=== PATIENT | male | born 1980 | race Hispanic/Latino ===

== ENCOUNTER 2017-10-27 22:20 | Emergency (ER) | payer OTHER ==
[~2017-10-27] VITALS: Ht 154.9 cm; Wt 80.7 kg
--- OUTSIDE RECORDS SUMMARY | 2017-10-27 22:23 | XMS REPORT | Clinical Summary ---
Author Author [facility] Address Unknown Phone Unavailable Care Team Providers Care Blood Bank Supervisor Name Role Phone PCP Unavailable Allergies Active Allergy Reactions Severity Noted Date Comments Unable To Assess Other (See Comments) 02/26/2014 The Pt states he is allergic to an medication but doesn't know name or what for Sulfamethoxazole-Trimetho Rash Low 02/01/2015 prim Current Medications Prescription Sig. Disp. Refills Start End Date Status Date calcium carbonate-vitamin Take 1 tablet by mouth 3 Active D2 500 mg(1,250mg) -200 (three) times daily. unit tablet multivitamin capsule Take 1 capsule by mouth Active daily. lisinopril Take 5 mg by mouth daily. Active (PRINIVIL,ZESTRIL) 5 MG tablet lancets (GLUCOCOM Use as directed 100 each 0 02/28/20 Active LANCETS) 28 gauge Misc 14 lancets & blood glucose Use as directed 100 each 0 02/28/20 Active strips Cmpk 14 insulin detemir (LEVEMIR) Inject 35 Units Active 100 unit/mL injection subcutaneously 2 (two) times daily. insulin lispro (HUMALOG) Inject subcutaneously 3 Active 100 unit/mL injection (three) times daily before meals. magnesium oxide (MAG-OX) Take 2 tablets (800 mg 180 tablet 11 Active 400 mg tablet total) by mouth 3 (three) 16 times daily. predniSONE (DELTASONE) 5 Take 1 tablet (5 mg 45 tablet 6 12/23/19 Active MG tabletIndications: total) by mouth daily. 17 Immunosuppression (HCC), Status post liver transplantation (HCC), Glycogen storage disease, unspecified type (HCC), Elevated liver enzymes mycophenolate (CELLCEPT) Take 4 capsules (1,000 mg 240 capsule 6 09/1109/12/19 Active 250 mg total) by mouth 2 (two) 18 19 capsuleIndications: times daily. Immunosuppression (HCC), Status post liver transplantation (HCC), Glycogen storage disease, unspecified type (HCC), Elevated liver enzymes tacrolimus (PROGRAF) 1 MG Take 1 capsule (1 mg 30 capsule 11 10/23/19 10/24/19 Active capsule total) by mouth once in morning. tacrolimus (PROGRAF) 0.5 Take 1 capsule (0.5 mg 30 capsule Active MG capsule total) by mouth nightly. 18 mycophenolate (CELLCEPT) Take 4 capsules (1,000 mg 0 11/06/19 Discontin 250 mg capsule total) by mouth 2 (two) 16 17 ued times daily. predniSONE (DELTASONE) 5 Take 1 tablet (5 mg 45 tablet 6 03/03/20 Discontin MG tabletIndications: total) by mouth daily. 16 17 ued Immunosuppression (HCC), Status post liver transplantation (HCC), Glycogen storage disease, unspecified type (HCC), Elevated liver enzymes tacrolimus (PROGRAF) 1 MG Take 1 capsule (1 mg 60 capsule 5 10/21/19 09/10/19 Discontin capsuleIndications: total) by mouth 2 (two) 17 18 ued Status post liver times daily. transplantation (HCC), Glycogen storage disease, unspecified type (HCC), Status post liver transplantation (HCC), Immunosuppression (HCC), Non morbid obesity due to excess calories, Screening for malignant neoplasm, Poorly controlled diabetes mellitus (HCC) mycophenolate (CELLCEPT) Take 4 capsules (1,000 mg 240 capsule 6 12/2209/12/19 Discontin 250 mg total) by mouth 2 (two) 17 18 ued capsuleIndications: times daily. Immunosuppression (HCC), Status post liver transplantation (HCC), Glycogen storage disease, unspecified type (HCC), Elevated liver enzymes tacrolimus (PROGRAF) 1 MG Take 1 capsule (1 mg 60 capsule 5 09/10/19 09/16/19 Discontin capsuleIndications: total) by mouth 2 (two) 18 18 ued Status post liver times daily. transplantation (HCC), Glycogen storage disease, unspecified type (HCC), Status post liver transplantation (HCC), Immunosuppression (HCC), Non morbid obesity due to excess calories, Screening for malignant neoplasm, Poorly controlled diabetes mellitus (HCC) tacrolimus (PROGRAF) 0.5 Take 1 capsule (0.5 mg 60 capsule 6 09/16/19 10/23/19 Discontin MG capsule total) by mouth daily 18 18 ued Take 1 Capsule (0.5 mg) every morning. tacrolimus (PROGRAF) 1 MG Take 1 mg capsule in the 60 capsule 5 10/23/19 Discontin capsuleIndications: PM. 18 18 ued Status post liver transplantation (HCC), Glycogen storage disease, unspecified type (HCC), Status post liver transplantation (HCC), Immunosuppression (HCC), Non morbid obesity due to excess calories, Screening for malignant neoplasm, Poorly controlled diabetes mellitus (HCC) Active Problems Problem Noted Date Obesity 02/02/2015 Poorly controlled diabetes mellitus (HCC) 02/01/2015 Abscess of rectum 02/01/2015 H/O liver transplant (HCC) 02/01/2015 Elevated liver enzymes 10/05/2014 Healthcare maintenance 10/05/2014 Last Assessment & Plan: Needs regular follow-up with PCP and supervisor rose grading. Diabetes mellitus (HCC) 02/26/2014 Last Assessment & Plan: Continue insulin as prescribed by cashier ticket selling/PCP Immunosuppression (HCC) 09/29/2013 Last Assessment & Plan: Will follow labs and dose immunosuppression accordingly. Status post liver transplantation (HCC) 09/29/2013 Overview: ICD9 DX Writer Editor L ast Assessment & Plan: LFTs elevated on last check. Will recheck tomorrow, and if they remain elevated, will need further work-up. Overweight 09/29/2013 Last Assessment & Plan: Encouraged patient to exercise 15 minutes per day Glycogen storage disease (HCC) 09/29/2013 Last Assessment & Plan: S/p liver transplant. currently tolerating regular diet without any problem Encounters Date Type Specialty Care Team Description 10/22/2017 Follow-Up Transplant Hepatology Rae Harper MD Status post liver transplantation (HCC) (Primary Dx);Immunosuppression (HCC);Obesity (BMI 30-39.9);Screening for malignant neoplasm;Poorly controlled diabetes mellitus (HCC) 10/22/2017 Orders Only Transplant Hepatology Rae Harper MD Status post liver transplantation (HCC);Immunosuppression (HCC);Encounter for long-term (current) use of high-risk medication;Encounter for therapeutic drug monitoring;Nonspecific findings on examination of blood;Disorder of magnesium metabolism;Complication of transplanted liver, unspecified complication (HCC) 10/22/2017 Telephone Transplant Hepatology Natalie Pandya Labs Only (SPK W SP. RE: LAB/RX RESULTS; NO MED CHANGES; REPEAT BLD WK X1 MTH; 11/23/2017; [facility]; GGT) 10/22/2017 Documentation Transplant Hepatology Natalie Pandya 10/22/2017 Abstract Transplant Hepatology Rae Harper MD 09/30/2017 Documentation Transplant Hepatology Kristyn Bartholomew 09/16/2017 Abstract Transplant Hepatology Erica Guevara RN 09/16/2017 Orders Only Transplant Hepatology Erica Guevara, DALLIN Status post liver transplantation (HCC) (Primary Dx);Immunosuppression (HCC);Encounter for long-term (current) use of high-risk medication;Encounter for therapeutic drug monitoring;Nonspecific findings on examination of blood;Disorder of magnesium metabolism;Complication of transplanted liver, unspecified complication (HCC) 09/15/2017 Telephone Transplant Hepatology Carmelita Cesar RN Medication Dose Change 09/15/2017 Orders Only Transplant Hepatology Carmelita Cesar RN 09/11/2017 Orders Only Transplant Hepatology Carmelita Cesar RN Immunosuppression (HCC);Status post liver transplantation (HCC);Glycogen storage disease, unspecified type (HCC);Elevated liver enzymes 09/10/2017 Orders Only Transplant Hepatology Davin Bah MD 09/09/2017 Orders Only Transplant Hepatology Carmelita Cesar RN Status post liver transplantation (HCC);Glycogen storage disease, unspecified type (HCC);Status post liver transplantation;Immunosup pression;Non morbid obesity due to excess calories;Screening for malignant neoplasm;Poorly controlled diabetes mellitus 08/10/2017 Refill Transplant Hepatology Davin Bah MD Immunosuppression (HCC);Status post liver transplantation (HCC);Glycogen storage disease, unspecified type (HCC);Elevated liver enzymes 05/19/2017 Telephone Transplant Hepatology Kristyn Bartholomew Labs Only ( No change in current medications, repeat labs in 4 mo. 09/09/17@ [facility]. ) 05/11/2017 Orders Only Transplant Hepatology Davin Bah MD 01/16/2017 Telephone Transplant Hepatology Rakel Alvarado Labs Only ( Spoke w/pt re; labs/meds. No changes in his medication, repeat labs 05/12/17 at [facility]. ) 01/09/2017 Orders Only Transplant Hepatology Davin Bah MD 12/22/2016 Orders Only Transplant Hepatology Carmelita Cesar RN Immunosuppression (HCC);Status post liver transplantation (HCC);Glycogen storage disease, unspecified type (HCC);Elevated liver enzymes after 10/26/2016 Family History Medical History Relation Name Comments Diabetes Father Heart disease Father Hypertension Mother Liver disease Sister Relation Name Status Comments Father Mother Sister Alive Social History Tobacco Use Types Packs/Day Years Used Date Never Smoker Smokeless Tobacco: Never Used Alcohol Use Drinks/Week oz/Week Comments No Sex Assigned at Date Recorded Not on file Last Filed Vital Signs Vital Sign Reading Time Taken Blood Pressure 132/87 10/22/2017 9:38 AM CDT Pulse 93 10/22/2017 9:38 AM CDT Temperature 36.8 C (98.2 F) 10/22/2017 9:38 AM CDT Respiratory Rate 16 10/22/2017 9:38 AM CDT Oxygen Saturation 98% 10/22/2017 9:38 AM CDT Inhaled Oxygen - - Concentration Weight 80.9 kg (178 lb 4.8 oz) 10/22/2017 9:38 AM CDT Height 154.9 cm (5' 1") 10/22/2017 9:38 AM CDT Body Mass Index 33.69 10/22/2017 9:38 AM CDT Plan of Treatment Health Maintenance Due Date Last Done Comments INFLUENZA VACCINE 03/22/2018 Results * CBC with platelet count + automated diff (10/22/2017 9:21 AM) Component Value Ref Range WBC 14.3 (H) 3.5 - 10.5 K/ L RBC 3.93 (L) 4.63 - 6.08 M/ L Hemoglobin 12.0 (L) 13.7 - 17.5 GM/DL Hematocrit 37.7 (L) 40.1 - 51.0 % MCV 95.9 (H) 79.0 - 92.2 fL MCH 30.5 25.7 - 32.2 pg MCHC 31.8 (L) 32.3 - 36.5 GM/DL RDW 12.3 11.6 - 14.4 % Platelets 287 150 - 450 K/CU MM MPV 10.4 9.4 - 12.4 fL nRBC 0 0 - 0 /100 WBC % Neutros 64 % % Lymphs 28 % % Monos 6 % % Eos 1 % % Baso 0 % # Neutros 9.09 (H) 1.78 - 5.38 K/ L # Lymphs 3.99 (H) 1.32 - 3.57 K/ L # Monos 0.89 (H) 0.30 - 0.82 K/ L # Eos 0.20 0.04 - 0.54 K/ L # Baso 0.05 0.01 - 0.08 K/ L Immature 1 0 - 1 % Granulocytes-Relative Specimen Performing Laboratory Blood [address] [address] * Tacrolimus level (10/22/2017 9:21 AM) Only the most recent of 4 results within the time period is included. Component Value Ref Range Tacrolimus Lvl 6.9 (L) 10.0 - 20.0 ng/mL Specimen [place] [address] Narrative Annual lab orders * CBC with platelet count + automated diff (10/22/2017 9:21 AM) Only the most recent of 4 results within the time period is included. Specimen Performing Laboratory Blood [facility] ([place]) Narrative The following orders were created for panel order CBC with platelet count + automated diff. Procedure Abnormality Status --------- - ------ CBC with platelet count ...[[id number]]AbnormalFinal result Please view results for these tests on the individual orders. * Phosphorus (10/22/2017 9:21 AM) Component Value Ref Range Phosphorus 4.2 2.3 - 4.7 mg/dL Specimen Performing Laboratory Blood [address] [address] Narrative Annual lab orders Annual lab orders Annual lab orders Annual lab orders * Magnesium (10/22/2017 9:21 AM) Only the most recent of 2 results within the time period is included. Component Value Ref Range Magnesium 1.6 1.6 - 2.6 mg/dL Specimen Performing Laboratory Blood [address] [address] Narrative Annual lab orders Annual lab orders Annual lab orders Annual lab orders * Bilirubin, direct (10/22/2017 9:21 AM) Component Value Ref Range Bilirubin, Direct 0.2 0.1 - 0.5 mg/dL Specimen Performing Laboratory Blood [address] [address] Narrative Annual lab orders Annual lab orders Annual lab orders Annual lab orders * Comprehensive metabolic panel (10/22/2017 9:21 AM) Only the most recent of 3 results within the time period is included. Component Value Ref Range Protein, Total 7.8 6.0 - 8.3 gm/dL Albumin 4.2 3.5 - 5.0 g/dL Alkaline Phosphatase 118 40 - 150 U/L Total Bilirubin 0.3 0.2 - 1.2 mg/dL Sodium 137 136 - 145 meq/L Potassium 3.8 3.5 - 5.1 meq/L Chloride 103 98 - 107 meq/L CO2 22 22 - 29 meq/L BUN 37 (H) 7 - 21 mg/dL Creatinine 1.28 (H) 0.57 - 1.25 mg/dL Glucose 48 (L) 70 - 105 mg/dL Calcium 9.6 8.4 - 10.2 mg/dL AST 12 5 - 34 U/L ALT 14 6 - 55 U/L EGFR 64Comment: ESTIMATED GFR IS NOT ACCURATE mL/min/1.73 sq m CREATININE CLEARANCE IN PREDICTING GLOMERULAR FILTRATION RATE. ESTIMATED GFR IS NOT APPLICABLE FOR DIALYSIS PATIENTS. Specimen Performing Laboratory Blood [address] [address] Narrative Annual lab orders Annual lab orders Annual lab orders Annual lab orders * Hepatic function panel (09/10/2017 9:39 AM) Component Value Ref Range Protein, Total, Serum 6.9 6.0 - 8.5 g/dL Albumin, Serum 4.3 3.5 - 5.5 g/dL Bilirubin, Total 0.2 0.0 - 1.2 mg/dL Bilirubin, Direct 0.08 0.00 - 0.40 mg/dL Alkaline Phosphatase, S 118 (H) 39 - 117 IU/L AST (SGOT) 15 0 - 40 IU/L ALT (SGPT) 16 0 - 44 IU/L Specimen Performing Laboratory [facility] Narrative Performed at:[address] [place], [place] [id number] Demographer: Robbie Horton MD, Phone:[phone] * Basic Metabolic Panel (09/10/2017 9:39 AM) Component Value Ref Range Glucose, Serum 125 (H) 65 - 99 mg/dL BUN 33 (H) 6 - 20 mg/dL Creatinine, Serum 1.17 0.76 - 1.27 mg/dL eGFR If NonAfricn Am 80 >59 mL/min/1.73 eGFR If Africn Am 92 >59 mL/min/1.73 BUN/Creatinine Ratio 28 (H) 9 - 20 Sodium, Serum 140 134 - 144 mmol/L Potassium, Serum 4.5 3.5 - 5.2 mmol/L Chloride, Serum 98 96 - 106 mmol/L Carbon Dioxide, Total 22 18 - 29 mmol/L Calcium, Serum 9.4 8.7 - 10.2 mg/dL Specimen Performing Laboratory [facility] Narrative Performed at:[id number] Demographer: Robbie Horton MD, Phone:[phone] * Bilirubin, total and direct (05/11/2017 10:57 AM) Only the most recent of 2 results within the time period is included. Component Value Ref Range Bilirubin, Direct 0.05 0.00 - 0.40 mg/dL Bilirubin, Indirect 0.15 0.10 - 0.80 mg/dL Specimen Performing Laboratory [facility] Narrative Performed at:[id number] Demographer: Robbie Horton MD, Phone:[phone] after 10/26/2016
--- OUTSIDE RECORDS SUMMARY | 2017-10-27 22:23 | XMS REPORT ---
Author Author [facility] Address Unknown Phone Unavailable Care Team Providers Care Academic Tutor Name Role Phone DAMON HERNANDEZ Unavailable Unavailable Problems This patient has no known problems. Allergies, Adverse Reactions, Alerts This patient has no known allergies or adverse reactions. Medications This patient has no known medications. Results Test Description Test Time Test Comments Text Results Atomic Results Result Comments TACROLIMUS LEVEL 2017-10-22 11:28:00 TACROLIMUS BLOOD (BEAKER) (test mnln=606) 6.9 ng/mL 10.0-20.0 Annual lab [id number] 11:05:00* Test Item Value Reference Range Comments PHOSPHORUS (BEAKER) (test upvl=715) 4.2 mg/dL 2.3-4.7 Annual lab ordersAnnual lab ordersAnnual lab ordersAnnual lab [id number] 11:05:00* Test Item Value Reference Range Comments MAGNESIUM (BEAKER) (test uuoa=956) 1.6 mg/dL 1.6-2.6 Annual lab ordersAnnual lab ordersAnnual lab ordersAnnual lab ordersCOMPREHENSIVE METABOLIC [id number] 11:05:00* Test Item Value Reference Range Comments TOTAL PROTEIN (BEAKER) (test pcwp=904) 7.8 gm/dL 6.0-8.3 ALBUMIN (BEAKER) (test hxpj=4980) 4.2 g/dL 3.5-5.0 ALKALINE PHOSPHATASE (BEAKER) (test wjal=626) 118 U/L 40-150 BILIRUBIN TOTAL (BEAKER) (test jxmd=000) 0.3 mg/dL 0.2-1.2 SODIUM (BEAKER) (test rnqq=607) 137 meq/L 136-145 POTASSIUM (BEAKER) (test gzxu=351) 3.8 meq/L 3.5-5.1 CHLORIDE (BEAKER) (test yehs=497) 103 meq/L 98-107 CO2 (BEAKER) (test trll=454) 22 meq/L 22-29 BLOOD UREA NITROGEN (BEAKER) (test lkkb=999) 37 mg/dL 7-21 CREATININE (BEAKER) (test hdml=113) 1.28 mg/dL 0.57-1.25 GLUCOSE RANDOM (BEAKER) (test kvun=662) 48 mg/dL 70-105 CALCIUM (BEAKER) (test ivai=733) 9.6 mg/dL 8.4-10.2 AST (SGOT) (BEAKER) (test ibqt=770) 12 U/L 5-34 ALT (SGPT) (BEAKER) (test etfx=239) 14 U/L 6-55 EGFR (BEAKER) (test wdrq=6090) 64 mL/min/1.73 sq m ESTIMATED GFR IS NOT ACCURATE CREATININE CLEARANCE IN PREDICTING GLOMERULAR FILTRATION RATE. ESTIMATED GFR IS NOT APPLICABLE FOR DIALYSIS PATIENTS. Annual lab ordersAnnual lab ordersAnnual lab ordersAnnual lab ordersBILIRUBIN, [id number] 11:05:00* Test Item Value Reference Range Comments BILIRUBIN DIRECT (BEAKER) (test yugh=448) 0.2 mg/dL 0.1-0.5 Annual lab ordersAnnual lab ordersAnnual lab ordersAnnual lab ordersCBC W/PLT COUNT & AUTO [id number] 10:30:00* Test Item Value Reference Range Comments WHITE BLOOD CELL COUNT (BEAKER) (test poqf=219) 14.3 K/ L 3.5-10.5 RED BLOOD CELL COUNT (BEAKER) (test dzxh=980) 3.93 M/ L 4.63-6.08 HEMOGLOBIN (BEAKER) (test yfcq=788) 12.0 GM/DL 13.7-17.5 HEMATOCRIT (BEAKER) (test hhcc=229) 37.7 % 40.1-51.0 MEAN CORPUSCULAR VOLUME (BEAKER) (test htrq=292) 95.9 fL 79.0-92.2 MEAN CORPUSCULAR HEMOGLOBIN (BEAKER) (test aaxj=819) 30.5 pg 25.7-32.2 MEAN CORPUSCULAR HEMOGLOBIN CONC (BEAKER) (test chyl=876) 31.8 GM/DL 32.3- 36.5 RED CELL DISTRIBUTION WIDTH (BEAKER) (test bngk=629) 12.3 % 11.6-14.4 PLATELET COUNT (BEAKER) (test vlun=227) 287 K/CU MM 150-450 MEAN PLATELET VOLUME (BEAKER) (test dqrp=934) 10.4 fL 9.4-12.4 NUCLEATED RED BLOOD CELLS (BEAKER) (test dyrq=275) 0 /100 WBC 0-0 NEUTROPHILS RELATIVE PERCENT (BEAKER) (test hush=931) 64 % LYMPHOCYTES RELATIVE PERCENT (BEAKER) (test yqja=221) 28 % MONOCYTES RELATIVE PERCENT (BEAKER) (test unhh=266) 6 % EOSINOPHILS RELATIVE PERCENT (BEAKER) (test oxoi=953) 1 % BASOPHILS RELATIVE PERCENT (BEAKER) (test zqfs=823) 0 % NEUTROPHILS ABSOLUTE COUNT (BEAKER) (test nfkk=837) 9.09 K/ L 1.78-5.38 LYMPHOCYTES ABSOLUTE COUNT (BEAKER) (test tlcl=335) 3.99 K/ L 1.32-3.57 MONOCYTES ABSOLUTE COUNT (BEAKER) (test gdza=537) 0.89 K/ L 0.30-0.82 EOSINOPHILS ABSOLUTE COUNT (BEAKER) (test chhz=374) 0.20 K/ L 0.04-0.54 BASOPHILS ABSOLUTE COUNT (BEAKER) (test klwk=200) 0.05 K/ L 0.01-0.08 IMMATURE GRANULOCYTES-RELATIVE PERCENT (BEAKER) (test qhks=6481) 1 % 0-1 TACROLIMUS [id number] 13:41:00* Test Item Value Reference Range Comments TACROLIMUS BLOOD (BEAKER) (test ihkp=235) 9.1 ng/mL 10.0-20.0 ALPHA FETOPROTEIN (AFP), TUMOR [id number] 11:34:00* Test Item Value Reference Range Comments ALPHA-FETOPROTEIN (BEAKER) (test vxkj=1562) 2.8 ng/mL <10.0 Effective 05/09/2014: Reference Range ChangeNew: <10.0 Previous: 0.0- [id number] 11:29:00* Test Item Value Reference Range Comments PHOSPHORUS (BEAKER) (test nwek=820) 3.7 mg/dL 2.3-4.7 [id number] 11:29:00* Test Item Value Reference Range Comments MAGNESIUM (BEAKER) (test vizq=912) 1.9 mg/dL 1.6-2.6 COMPREHENSIVE METABOLIC [id number] 11:29:00* Test Item Value Reference Range Comments TOTAL PROTEIN (BEAKER) (test hjxm=478) 7.7 gm/dL 6.0-8.3 ALBUMIN (BEAKER) (test sscz=9142) 4.1 g/dL 3.5-5.0 ALKALINE PHOSPHATASE (BEAKER) (test wksk=295) 130 U/L 40-150 BILIRUBIN TOTAL (BEAKER) (test belo=469) 0.3 mg/dL 0.2-1.2 SODIUM (BEAKER) (test spex=426) 140 meq/L 136-145 POTASSIUM (BEAKER) (test djdu=750) 3.8 meq/L 3.5-5.1 CHLORIDE (BEAKER) (test shpa=272) 106 meq/L 98-107 CO2 (BEAKER) (test glgs=532) 24 meq/L 22-29 BLOOD UREA NITROGEN (BEAKER) (test egbl=667) 31 mg/dL 7-21 CREATININE (BEAKER) (test bjks=947) 1.27 mg/dL 0.57-1.25 GLUCOSE RANDOM (BEAKER) (test sdjw=873) 97 mg/dL 70-105 CALCIUM (BEAKER) (test zwrh=152) 9.4 mg/dL 8.4-10.2 AST (SGOT) (BEAKER) (test oznv=115) 11 U/L 5-34 ALT (SGPT) (BEAKER) (test ebvn=243) 13 U/L 6-55 EGFR (BEAKER) (test qijm=6516) 65 mL/min/1.73 sq m ESTIMATED GFR IS NOT ACCURATE CREATININE CLEARANCE IN PREDICTING GLOMERULAR FILTRATION RATE. ESTIMATED GFR IS NOT APPLICABLE FOR DIALYSIS PATIENTS. LIPID [id number] 11:29:00* Test Item Value Reference Range Comments TRIGLYCERIDES (BEAKER) (test susd=792) 107 mg/dL CHOLESTEROL (BEAKER) (test jzki=999) 192 mg/dL HDL CHOLESTEROL (BEAKER) (test wtzk=993) 60 mg/dL LDL CHOLESTEROL CALCULATED (BEAKER) (test tzxd=174) 111 mg/dL Triglyceride Reference Range: Low Risk <150 Borderline 150-199 High Risk 200-499 Very High Risk >=500Cholesterol Reference Range: Low Risk <200 Borderline 200-239 High Risk >240HDL Cholesterol Reference Range: Low Risk >=60 High Risk <40LDL Cholesterol Reference Range: Optimal <100 Near Optimal 100-129 Borderline 130-159 High 160-189 Very High >=190 BILIRUBIN, [id number] 11:29:00* Test Item Value Reference Range Comments BILIRUBIN DIRECT (BEAKER) (test vxjc=234) 0.1 mg/dL 0.1-0.5 CBC W/PLT COUNT & AUTO [id number] 10:40:00* Test Item Value Reference Range Comments WHITE BLOOD CELL COUNT (BEAKER) (test ytof=369) 15.4 K/ L 4.0-10.0 RED BLOOD CELL COUNT (BEAKER) (test tcfg=795) 3.82 M/ L 4.20-5.80 HEMOGLOBIN (BEAKER) (test haqe=685) 12.3 GM/DL 13.0-16.8 HEMATOCRIT (BEAKER) (test impv=089) 37.3 % 40.0-50.0 MEAN CORPUSCULAR VOLUME (BEAKER) (test krgs=046) 97.8 fL 82.0-98.0 MEAN CORPUSCULAR HEMOGLOBIN (BEAKER) (test lknz=801) 32.3 pg 27.0-33.0 MEAN CORPUSCULAR HEMOGLOBIN CONC (BEAKER) (test bzes=889) 33.1 GM/DL 32.0- 36.0 RED CELL DISTRIBUTION WIDTH (BEAKER) (test rbdz=857) 11.9 % 10.3-14.2 PLATELET COUNT (BEAKER) (test ntvx=203) 280 K/CU MM 150-430 MEAN PLATELET VOLUME (BEAKER) (test zgwa=384) 7.2 fL 6.5-10.5 NUCLEATED RED BLOOD CELLS (BEAKER) (test uctm=765) 0 /100 WBC 0-0 NEUTROPHILS RELATIVE PERCENT (BEAKER) (test qthj=722) 73 % LYMPHOCYTES RELATIVE PERCENT (BEAKER) (test dzsk=619) 20 % MONOCYTES RELATIVE PERCENT (BEAKER) (test uscq=266) 6 % EOSINOPHILS RELATIVE PERCENT (BEAKER) (test ejvp=941) 1 % BASOPHILS RELATIVE PERCENT (BEAKER) (test bxkf=200) 0 % NEUTROPHILS ABSOLUTE COUNT (BEAKER) (test fkwa=024) 11.20 K/ L 1.80-8.00 LYMPHOCYTES ABSOLUTE COUNT (BEAKER) (test cxsy=695) 2.99 K/ L 1.48-4.50 MONOCYTES ABSOLUTE COUNT (BEAKER) (test ttnx=356) 1.00 K/ L 0.00-1.30 EOSINOPHILS ABSOLUTE COUNT (BEAKER) (test sljl=916) 0.18 K/ L 0.00-0.50 BASOPHILS ABSOLUTE COUNT (BEAKER) (test cqvs=432) 0.05 K/ L 0.00-0.20 0.00
[2017-10-27] MEDS ORDERED: CEFTRIAXONE SOD 1 GM VIAL IM ONE (22:45)
[2017-10-27] MEDS ORDERED: HYDROCODONE/APAP 5MG-325MG TAB PO ONE (22:45)
== END 2017-10-27 23:00 | disposition home or self-care (01) ==
LOC: FSED 22:20
CPT/HCPCS: 99282; J0696

== ENCOUNTER 2018-07-03 00:07 | Emergency (ER) | payer OTHER ==
[~2018-07-03] VITALS: Ht 154.9 cm; Wt 81.6 kg
[2018-07-03] MEDS ORDERED: LIDOCAINE HCL 2% LOCAL INJ 5 ML SDV VIAL INJ STA (00:21)
[2018-07-03] MEDS ORDERED: CLINDAMYCIN HC150 MG PO (00:42)
[2018-07-03 01:07] VITALS: BP 128/80
== END 2018-07-03 01:00 | disposition home or self-care (01) ==
LOC: FSED 00:07
DX: L02.214 Cutaneous abscess of groin (principal); I10 Essential (primary) hypertension; E11.65 Type 2 diabetes mellitus with hyperglycemia; Z94.4 Liver transplant status
CPT/HCPCS: 99283

== ENCOUNTER 2019-08-30 23:42 | Emergency (ER) | payer OTHER ==
[~2019-08-30] VITALS: Ht 154.9 cm; Wt 81.6 kg
[~2019-08-30 23:42] MED LIST: CLINDAMYCIN HC150 MG PO
--- OUTSIDE RECORDS SUMMARY | 2019-08-30 23:45 | XMS REPORT | Summary of Care ---
Author Author [facility] Organization [facility] Address Unknown Phone Unavailable Care Team Providers Care Short Piece Handler Name Role Phone Nathaly Bain PCP Unavailable Reason for Visit * Reason Comments Disease Management Encounter Details Care Team Description Date Type Department Balaji Liu MD [address] [place] [address] Disease Management 03/15/2019 Office Visit [facility] Nephrology [address]; [address] [place] [address] Allergies Comments Active Allergy Reactions Severity Noted Date Bactrim 03/19/2009 Niacin GI 02/20/2006 documented as of this encounter (statuses as of 03/17/2019) Medications End Date Status Medication Sig Dispensed Refills Start Date Active tacrolimus (PROGRAF) 1 MG Take 1 mg by 0 capsule mouth daily. Active Calcium Carbonate-Vitamin Take 2 Tabs 0 D (CALCIUM-CARB 600 + D by mouth OR) daily. Active Alcohol Swabs (ALCOHOL Use as 200 Each 1 PREP) 70 % directed 5 4 PADSIndications: Diabetes times daily mellitus (HCCode) Active Glucose Blood Strips 1 Each four 400 Each 3 (ONETOUCH times daily. 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 Active predniSONE (DELTASONE) 5 Take 2 Tabs 60 Tab 11 MG tablet by mouth 8 daily. Active Blood Glucose Monitoring Check glucose 1 Kit 0 Suppl (ONETOUCH VERIO) 4-5x daily; 9 w/Device KIT Dx E09.9 Active amlodipine (NORVASC) 2.5 TAKE 1 TAB BY 90 Tab 0 MG tablet MOUTH DAILY. 9 Active GlucometerIndications: Check blood 1 Each 1 Steroid-induced diabetes sugars 4 9 (HCCode) times daily Active Lancets MISCIndications: 1 Each four 400 Each 3 Steroid-induced diabetes times daily. 9 (HCCode) Active Lancets Misc. Check blood 1 Each 1 KITIndications: sugars 4 9 Steroid-induced diabetes times daily (HCCode) Active Insulin Detemir (LEVEMIR INJECT 25 30 mL 2 FLEXTOUCH) 100 UNIT/ML UNITS INTO 9 SOPNIndications: Type 2 THE SKIN TWO diabetes mellitus without TIMES DAILY. complication (HCCode) Active ONETOUCH VERIO USE 400 Strip 0 DIRECTED 4 9 TIMES A DAY Active amlodipine (NORVASC) 5 MG TAKE 1 TABLET 90 Tab 0 tabletIndications: BY MOUTH 9 Essential hypertension DAILY. Active Glucose Blood Strips 1 Each four 360 Each 3 (GLUCOSE METER times daily. 9 TEST)Indications: Use one strip Steroid-induced diabetes as directed (HCCode) to check blood sugars 4 times daily, diagnosis: steroid induced diabetes, on insulin. Please dispense 90 days' eltehr=111 Active GlucometerIndications: Check blood 1 Each 1 Steroid-induced diabetes sugars 4 9 (HCCode) times daily Active Continuous Blood Gluc 1 Each daily. 1 Device 1 Partnership Development Manager (FREESTYLE TONIE 9 14 DAY READER) DEVIIndications: Steroid-induced diabetes (HCCode) Active Continuous Blood Gluc 1 Each every 7 Each 3 Sensor (FREESTYLE TONIE 14 days. 9 14 DAY SENSOR) MISCIndications: Steroid-induced diabetes (HCCode) Active Magnesium Oxide 400 MG Take 800 mg 270 Each 3 CAPS by mouth 3 9 times daily. Active Insulin Pen Needle (BD USE 500 Each 10 PEN NEEDLE SHARIF U/F) 32G DIRECTED TO 9 X 4 MM MISCIndications: INJECT 5 Type 2 diabetes mellitus TIMES DAILY; without complication Dx E11.65 ([facility]) Active lisinopril (PRINIVIL, Take 1 Tab by 90 Tab 3 ZESTRIL) 20 MG tablet mouth daily. 9 03/15/2019 Discontinued lisinopril (PRINIVIL, TAKE 1 TAB BY 90 Tab 3 ZESTRIL) 10 MG tablet MOUTH DAILY. 9 documented as of this encounter (statuses as of 03/17/2019) Active Problems Problem Noted Date CKD (chronic kidney disease) stage 3, GFR 30-59 ml/min ([facility]) 04/28/2017 Steroid-induced diabetes ([facility]) 03/05/2017 Steroid long-term use 10/26/2014 HTN (hypertension) 10/26/2014 Microalbuminuria 07/27/2014 Renal insufficiency 07/27/2014 Obesity 05/16/2014 Overview: Vitals 03/30/2006 03/19/2009 03/26/2009 04/30/2009 03/14/2014 WEIGHT 103 151 148 151.5 171 HEIGHT 5' 1" 5' 0" 5' 0" BODY MASS INDEX 19.46 29.59 33.4 Vitals 05/16/2014 WEIGHT 174 HEIGHT 5' 0" BODY MASS INDEX 33.98 Encouraged 10 pound weight loss Encouraged increasing exercise to 150 min/wk Nephrotic syndrome 03/19/2009 S/P liver transplant ([facility]) 03/19/2009 Overview: [facility] glycogen storage disease (s/p liver transplant 2007) Med: tacrolimus (PROGRAF) 1 MG capsule Take 1 capsule (1 mg total) by mouth 2 (two) times daily. 60 capsule 5; no prednisone Patient's is GLYCOGEN STORAGE DISEASE 03/30/2006 LIVER FUNCTION TESTS, ABNORMAL 03/30/2006 Hypercholesterolemia 03/30/2006 Overview: Results for VISHAL CUNNINGHAM ( ) as of 05/16/2014 15:10 Ref. Range 10/03/2010 08:53 05/12/2014 09:58 CHOLESTEROL Latest Range: 100-199 mg/dL 189 172 TRIGLYCERIDES Latest Range: 0-149 mg/dL 143 86 HDL Latest Range: >39 mg/dL 49 51 LDL CHOLESTEROL CALCULATED Latest Range: 0-99 mg/dL 111 104 (H) VLDL CHOLESTEROL CALC Latest Range: 5-40 mg/dL 17 Recheck lipid profile HYPERTRIGLYCERIDEMIA, SEVERE 03/30/2006 HEPATIC ADENOMA 03/30/2006 SCREENING FOR IMMUNITY NEC 03/30/2006 ALLERGY 03/30/2006 ADVEF, ADVERSE, MEDICINAL/BIOL SUBST NOS 03/30/2006 KIDNEY DISEASE 03/30/2006 LIVER TRANSPLANT CANDIDATE 03/30/2006 HYPERURICEMIA 03/30/2006 HX, PERSONAL, PAST NONCOMPLIANCE 03/30/2006 documented as of this encounter (statuses as of 03/17/2019) Resolved Problems Problem Noted Date Resolved Date T2DM (type 2 diabetes mellitus) (HCCode) 03/15/2014 03/05/2017 Overview: 1) Diabetes Mellitus, A1c 6.1% - A1c 10.9-->6.1%. Med:ontinue to record blood sugars and patient will bring back with him at next visit - reduce humalog with dinner to 7 units. Goal bedtime glucose 130-160. If less than 100, have 1/2 sandwich, between 100-120 have 6 peanut butter crackers. -start metformin 500 mg PO BID - continue levemir 25 units BID, reduce by 3 units after starting metformin until fasting glucose 100-120. - obtain eye exam - continue lisinopril, may need to increase. - encouraged to start exercise program - encouraged to lose 10 pounds in 3 months documented as of this encounter (statuses as of 03/17/2019) Immunizations Name Administration Dates Next Due Influenza Quad-PF 05/06/2018 05/06/2019 documented as of this encounter Social History Date Tobacco Use Types Packs/Day Years Used Never Smoker Smokeless Tobacco: Never Used Drinks/Week oz/Week Comments Alcohol Use No Sex Assigned at Date Recorded Not on file Industry Job Start Date Occupation Not on file Not on file Not on file Travel End Travel History Travel Start No recent travel history available. documented as of this encounter Last Filed Vital Signs Reading Time Taken Comments Vital Sign 133/93 03/15/2019 2:14 PM CDT Blood Pressure 109 03/15/2019 2:14 PM CDT Pulse 37.2 C (98.9 F) 03/15/2019 2:14 PM CDT Temperature 16 03/15/2019 2:14 PM CDT Respiratory Rate - - Oxygen Saturation - - Inhaled Oxygen Concentration 85.2 kg (187 lb 12.8 oz) 03/15/2019 2:14 PM CDT Weight 154.9 cm (5' 1") 03/15/2019 2:14 PM CDT Height 35.48 03/15/2019 2:14 PM CDT Body Mass Index documented in this encounter Progress Notes * Balaji Liu MD - 03/15/2019 1:40 PM CDT Date: March 15, 2019 Patient Name: Vishal Cunningham Patient Date of : 1980 Chief Complaint: Chief Complaint Patient presents with Disease Management History: History of Present Illness: Vishal Cunningham is a 38 y.o. male who presents for follow up. Blood glucose arellano s been elevated at home, 160-180s at home, did have low glucose 60-70s at home. FK levels have been stable, most recent one 3.8. BP a bit elevated, ongoing proteinuria noted. Current Medications: Current Outpatient Medications Medication Sig Dispense Refill Alcohol Swabs (ALCOHOL PREP) 70 % PADS Use as directed 5 times daily 200 Eac h 1 amlodipine (NORVASC) 2.5 MG tablet TAKE 1 TAB BY MOUTH DAILY. 90 Tab 0 amlodipine (NORVASC) 5 MG tablet TAKE 1 TABLET BY MOUTH DAILY. 90 Tab 0 Blood Glucose Monitoring Suppl (TeacherTubeUCH VERIO) w/Device KIT Check glucose 4 -5x daily; Dx E09.9 1 Kit 0 Calcium Carbonate-Vitamin D (CALCIUM-CARB 600 + D OR) Take 2 Tabs by mouth d aily. Continuous Blood Gluc Partnership Development Manager (FREESTYLE TONIE 14 DAY READER) MIRIAN 1 Each d aily. 1 Device 1 Continuous Blood Gluc Sensor (FREESTYLE TONIE 14 DAY SENSOR) MISC 1 Each lexy ry 14 days. 7 Each 3 Glucometer Check blood sugars 4 times daily 1 Each 1 Glucometer Check blood sugars 4 times daily 1 Each 1 Glucometer Check blood sugars 4 times daily 1 Each 2 Glucose Blood Strips (GLUCOSE METER TEST) 1 Each four times daily. Use one s trip as directed to check blood sugars 4 times daily, diagnosis: steroid induced diabetes, on insulin. Please dispense 90 days' wzogcg=723 360 Each 3 Glucose Blood Strips (ONETOUCH VERIO) 1 Each four times daily. Use one strip as directed 400 Each 3 HUMALOG KWIKPEN 100 UNIT/ML SOPN Inject 5-7 Units into the skin 3 times clari y (before meals). 15 mL 3 Insulin Detemir (LEVEMIR FLEXTOUCH) 100 UNIT/ML SOPN INJECT 25 UNITS INTO TH E SKIN TWO TIMES DAILY. 30 mL 2 Insulin Pen Needle (BD PEN NEEDLE SHARIF U/F) 32G X 4 MM MISC USE DIRECTED TO INJECT 5 TIMES DAILY; Dx E11.65 500 Each 10 Lancets Misc. KIT Check blood sugars 4 times daily 1 Each 1 Lancets MISC 1 Each four times daily. 400 Each 3 lisinopril (PRINIVIL, ZESTRIL) 10 MG tablet TAKE 1 TAB BY MOUTH DAILY. 90 Ta b 3 Magnesium Oxide 400 MG CAPS Take 800 mg by mouth 3 times daily. 270 Each 3 ONETOUCH DELICA LANCETS 33G MISC USE DIRECTED 4 TIMES A DAY 100 Each 3 ONETOUCH VERIO USE DIRECTED 4 TIMES A DAY 400 Strip 0 predniSONE (DELTASONE) 5 MG tablet Take 2 Tabs by mouth daily. 60 Tab 11 tacrolimus (PROGRAF) 1 MG capsule Take 1 mg by mouth daily. No current facility-administered medications for this visit. Allergies: Allergies Allergen Reactions Bactrim Niacin GI Past Medical History: Past Medical History: Diagnosis Date CKD (chronic kidney disease) DM (diabetes mellitus) (HCCode) Glycogen storage disease (HCCode) HTN (hypertension) Liver disease Past Surgical History: Past Surgical History: Procedure Laterality Date HX LIVER TRANSPLANT Social History: Social History Tobacco Use Smoking status: Never Smoker Smokeless tobacco: Never Used Substance Use Topics Alcohol use: No Family History: Family History Problem Relation Name Age of Onset High Blood Pressure Mother Diabetes Father Liver Disease Sister Review of Systems: Constitutional: no fever, no chills, no night sweats, no unintentional weight ch anges, no fatigue Skin: no rashes, no lesions, no pruritis, no petechiae ENT: no blurry vision, no double vision, no hearing changes, no epistaxis, no or al ulcers Respiratory: no shortness of breath, no cough, no wheezing, no hemoptysis Cardiovascular: no chest pain, no palpitations, no dyspnea of exertion, no parox symal nocturnal dyspnea, no orthopnea Gastrointestinal: no nausea, no vomiting, no diarrhea, no constipation, no abd p ain, no melena/hematochezia Genitourinary: no dysuria, no hematuria, no frequency, no urgency Musculoskeletal: no myalgias, no arthralgias, no stiffness, no tenderness Neurologic: no headache, no numbness/tingling, no weakness, no dizziness, no lig htheadedness Psychiatric: no depression, no insomnia, no excessive drowsiness, no SI Endocrine: no polyuria, no polydipsia, no temp intolerance, no polyphagia Hematologic: no easy bleeding/brusing, no lymphadenopathy, no recurrent infectio ns Examination: BP (!) 133/93 (BP Location: left arm, Patient Position: Sitting, Cuff Size: regu lar) | Pulse 109 | Temp 98.9 F (37.2 C) (Oral) | Resp 16 | Ht 5' 1" (1.5 49 m) | Wt 187 lb 12.8 oz (85.2 kg) | BMI 35.48 kg/m Constitutional: no acute distress, well nourished, appears stated age HEENT: Normocephalic, atrumatic, extraocular movements intact, mucous membranes moist, clear oropharynx, normal dentition Neck: Supple, no lymphadenopathy, no jugular venous distention CVS: regular rate and rhythm, no murmurs/gallops/rubs, peripheral pulses intact Pulm: lungs clear to auscultation bilaterally, no rales, no wheezes, no rhonchi GI: normal bowel sounds, nontender, nondistended, no organomeagaly Ext: no joint inflammation, no clubbing/cyanosis/edema Skin: no decreased skin turgor, no delayed capillary refill, no rashes, no petec hiae Neurologic: awake, alert, oriented, moving all extremities Data: Laboratory Testing: Reviewed in [facility] Radiology Studies: Reviewed in [facility] Impression: Vishal Cunningham is a 38 y.o. male with a history of: Patient Active Problem List Diagnosis GLYCOGEN STORAGE DISEASE LIVER FUNCTION TESTS, ABNORMAL Hypercholesterolemia HYPERTRIGLYCERIDEMIA, SEVERE HEPATIC ADENOMA SCREENING FOR IMMUNITY NEC ALLERGY ADVEF, ADVERSE, MEDICINAL/BIOL SUBST NOS KIDNEY DISEASE LIVER TRANSPLANT CANDIDATE HYPERURICEMIA HX, PERSONAL, PAST NONCOMPLIANCE Nephrotic syndrome S/P liver transplant (HCCode) Obesity Microalbuminuria Renal insufficiency Steroid long-term use HTN (hypertension) Steroid-induced diabetes (HCCode) CKD (chronic kidney disease) stage 3, GFR 30-59 ml/min (HCCode) Plan: 1. 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 -He has had stable renal function, cr 1.15 on 01/28/19. -Ongoing proteinuria, nonnephrotic range proteinuria, will uptitrate lisinopril to 20 daily -Monitor FK levels, aim for goal levels ~5. Management per Liver TXP team 2. Lytes: potassium acceptable 3. Acid-base: no metabolic acidosis 4. Volume:euvolemic 5. Heme:Normocytic anemia, now stable, will monitor closely 6. 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 CVS:BP at goal, will continue to monitor 8. DM:needs tighter glucose control, glucose has been elevated, A1C 8.6 on 11/20 9, following with endocrine The plan was discussed with the patient who verbalized understanding. Thank you for referring this patient for consultation and allowing me to partici chisholm in his care. Please do not hesitate to call with any questions. Balaji Liu MD [facility] Certified Family Mediatorswatch clerk, Section of Nephrology [phone] Office: [phone] documented in this encounter Plan of Treatment Care Team Description Date Type Specialty Malina Macias MD [address] [id number] 05/10/2019 Office Visit Endocrinology Balaji Liu MD [address] [address] 07/12/2019 Office Visit Nephrology Health Maintenance Due Date Last Done Comments TETANUS SHOT (ADULT) 1996 ANNUAL DIABETIC 1999 RETINOPATHY SCREENING BMI FOLLOW UP PLAN 1999 HIV SCREENING 1999 FLU VACCINE > 6 MONTHS 01/20/2019 05/06/2018 A1C TESTING EVERY 6 06/04/2019 12/03/2018, 08/26/2018, 05/20/2018, MONTHS Additional history exists ANNUAL DIABETIC FOOT EXAM 12/07/2019 12/06/2018, 12/03/2018, 08/26/2018, Additional history exists documented as of this encounter Results Not on filedocumented in this encounter Visit Diagnoses Diagnosis CKD (chronic kidney disease) stage 3, GFR 30-59 ml/min (HCCode) - Primary Chronic kidney disease, Stage III (moderate) Microalbuminuria Proteinuria Nephrotic syndrome Nephrotic syndrome with unspecified pathological lesion in kidney Vitamin D deficiency Unspecified vitamin D deficiency S/P liver transplant (HCCode) Liver replaced by transplant Essential hypertension Unspecified essential hypertension Hyperuricemia Other abnormal blood chemistry Steroid-induced diabetes (HCCode) Secondary diabetes mellitus without mention of complication, not stated as uncontrolled, or unspecified documented in this encounter Insurance Type Payer Benefit Subscriber ID Effective Phone Address Plan / Dates Group Medicaid [employer] xxxxxxxxx 2011-P [address] [facility] [id number] [place] [address] documented as of this encounter
--- OUTSIDE RECORDS SUMMARY | 2019-08-30 23:45 | XMS REPORT | Summary of Care ---
Author Author [facility] Organization [facility] Address Unknown Phone Unavailable Care Team Providers Care Refrigerator Assembler Name Role Phone Nathaly Bain PCP Unavailable Reason for Visit * Reason Comments Disease Management Encounter Details Care Team Description Date Type Department Balaji Liu MD [address] [place] [address] Disease Management 07/12/2019 Office Visit [facility] Nephrology [address]; [address] [place] [address] Allergies Comments Active Allergy Reactions Severity Noted Date Bactrim 03/19/2009 Niacin GI 02/20/2006 documented as of this encounter (statuses as of 07/12/2019) Medications End Date Status Medication Sig Dispensed [...] DIRECTED 4 6 TIMES A DAY Active predniSONE (DELTASONE) 5 Take 2 Tabs 60 Tab 11 MG tablet by mouth 8 daily. Active Blood Glucose Monitoring Check glucose 1 Kit 0 Suppl (ONETOUCH VERIO) 4-5x daily; 9 w/Device KIT Dx E09.9 Active Lancets MISCIndications: 1 Each four 400 Each 3 Steroid-induced diabetes times daily. 9 (HCCode) Active Lancets Misc. Check blood 1 Each 1 KITIndications: sugars 4 9 Steroid-induced diabetes times daily (HCCode) Active Magnesium Oxide 400 MG Take 800 mg 270 Each 3 CAPS by mouth 3 9 times daily. Active Insulin Pen Needle (BD USE 500 Each 10 PEN NEEDLE SHARIF U/F) 32G DIRECTED TO 9 X 4 MM MISCIndications: INJECT 5 Type 2 diabetes mellitus TIMES DAILY; without complication Dx E11.65 (HCCode) Active amlodipine (NORVASC) 5 MG Take 1 Tab by 90 Tab 0 tabletIndications: mouth daily. 9 Essential hypertension Active HUMALOG KWIKPEN 100 Inject 5-7 15 mL 3 UNIT/ML SOPNIndications: Units into 9 Type 2 diabetes mellitus the skin 3 without complication times daily (HCCode) (before meals). Active Insulin Detemir (LEVEMIR Inject 22 45 mL 2 FLEXTOUCH) 100 UNIT/ML Units into 9 SOPNIndications: Type 2 the skin two diabetes mellitus without times daily. complication (HCCode) Active lisinopril (PRINIVIL, Take 1 Tab by 190 Tab 3 ZESTRIL) 10 MG tablet mouth two 0 times daily. 07/12/2019 Discontinued lisinopril (PRINIVIL, Take 1 Tab by 90 Tab 3 ZESTRIL) 20 MG tablet mouth daily. 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 Steroid long-term use 10/26/2014 HTN (hypertension) [...] min/wk Nephrotic syndrome 03/19/2009 S/P liver transplant ([facility]) 03/19/2009 Overview: H glycogen storage disease (s/p liver transplant 2007) [...] as of this encounter (statuses as of 07/12/2019) Resolved Problems Problem Noted Date Resolved Date [facility] 2 [facility] mellitus[facility] 03/15/2014 03/05/2017 Overview: 1) Diabetes Mellitus, A1c [...] as of this encounter (statuses as of 07/12/2019) Immunizations Name Administration Dates Next Due Influenza Quad-PF 05/10/2019, 05/06/2018 05/06/2019 documented as of this encounter [...] Signs Reading Time Taken Comments Vital Sign 132/86 07/12/2019 2:14 PM [facility] Blood Pressure 90 07/12/2019 2:14 PM [facility] Pulse - - Temperature 16 07/12/2019 2:14 PM [facility] Respiratory Rate - - Oxygen Saturation - - Inhaled Oxygen Concentration 87.5 kg (193 lb) 07/12/2019 2:14 PM [facility] Weight 154.9 cm (5' 1") 07/12/2019 2:14 PM [facility] Height 36.47 07/12/2019 2:14 PM [facility] Body Mass Index documented in this encounter Progress Notes * Balaji Liu MD - 07/12/2019 2:00 PM [facility] Date: July 12, 2019 Patient Name: Vishal Cunningham Patient Date of : 1980 Chief Complaint: Chief Complaint Patient presents with Disease Management History: History of Present Illness: Vishal Cunningham is a 39 y.o. male here for follow up. Pt states that he has be en doing well overall. He denies any CP, SOB, abd pain, n/v. Pt does report marlo t she has been having FSBG 150-180s at times up to 200s. Pt reports that he has had episodes of feeling dizzy with his lisinopril, does not check his blood pres sures at that time. Has been better if he takes 10 mg BID. Current Medications: Current Outpatient Medications Medication Sig Dispense Refill Alcohol Swabs (ALCOHOL PREP) 70 % PADS Use as directed 5 times daily 200 Eac h 1 amlodipine (NORVASC) 5 MG tablet Take 1 Tab by mouth daily. 90 Tab 0 Blood Glucose Monitoring Suppl (ONETOUCH VERIO) w/Device KIT Check glucose 4 -5x daily; Dx E09.9 1 Kit 0 Calcium Carbonate-Vitamin D (CALCIUM-CARB 600 + D OR) Take 2 Tabs by mouth d aily. Glucose Blood Strips (ONETOUCH VERIO) 1 Each four times daily. Use one strip as directed 400 Each 3 HUMALOG KWIKPEN 100 UNIT/ML SOPN Inject 5-7 Units into the skin 3 times clari y (before meals). 15 mL 3 Insulin Detemir (LEVEMIR FLEXTOUCH) 100 UNIT/ML SOPN Inject 22 Units into th e skin two times daily. 45 mL 2 Insulin Pen Needle (BD PEN NEEDLE SHARIF U/F) 32G X 4 MM MISC USE DIRECTED TO INJECT 5 TIMES DAILY; Dx E11.65 500 Each 10 Lancets Misc. KIT Check blood sugars 4 times daily 1 Each 1 Lancets MISC 1 Each four times daily. 400 Each 3 lisinopril (PRINIVIL, ZESTRIL) 10 MG tablet TAKE 1 TABLET BY MOUTH EVERY DAY 90 Tab 3 lisinopril (PRINIVIL, ZESTRIL) 20 MG tablet Take 1 Tab by mouth daily. 90 Ta b 3 Magnesium Oxide 400 MG CAPS Take 800 mg by mouth 3 times daily. 270 Each 3 ONETOUCH DELICA LANCETS 33G MISC USE DIRECTED 4 TIMES A DAY 100 Each 3 predniSONE (DELTASONE) 5 MG tablet Take 2 [...] lymphadenopathy, no recurrent infectio ns Examination: BP 132/86 (BP Location: left arm, Patient Position: Sitting, Cuff Size: regular) | Pulse 90 | Resp 16 | Ht 5' 1" (1.549 m) | Wt 193 lb (87.5 kg) | BMI 36.47 kg/m Constitutional: no acute distress, well nourished, [...] all extremities Data: Laboratory Testing: [facility] Radiology Studies: [facility] Impression: Vishal Cunningham is a 39 y.o. male with a history of: Patient [...] kidney disease) stage 3, GFR 30-59 ml/min ([facility]) Plan: 1. 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 -He has had stable renal function, cr 1.30 on 05/04/19. -Ongoing proteinuria, nonnephrotic range proteinuria, will continue lisinopril t o 20 daily however break up to 10 BID -Monitor FK levels, aim for goal levels ~5. Management per Liver TXP team -Check urine to assess for proteinuria 2. Lytes: potassium acceptable 3. Acid-base: no metabolic acidosis 4. Volume:euvolemic 5. Heme:Normocytic anemia, now stable, will monitor closely 6. 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 CVS:BP at goal, will continue to monitor 8. DM:glucose poorly controlled, A1C up to 8.3, we discussed needs tighter con trol. The plan was discussed with the patient who verbalized understanding. Thank you for referring this patient for consultation and allowing me to partici chisholm in his care. Please do not hesitate to call with any questions. Balaji Liu MD [facility] Gold Toolerpattern hand, Section of Nephrology [phone] Office: [phone] [facility] documented in this encounter Plan of Treatment Care Team Description Date Type Specialty Malina Macias MD [facility] [address] [address] [phone] 09/29/2019 Office Visit Endocrinology Balaji Liu MD [address] [place] [address] 12/06/2019 Office Visit Nephrology Order Schedule Name Type Priority Associated Diagnoses Ordered: 07/12/2019 URINALYSIS, COMPLETE Lab Routine Microalbuminuria W/REFLEX TO CULTURE Ordered: 07/12/2019 RANDOM URINE Lab Routine Microalbuminuria PROTEIN/CREATININE Health Maintenance Due Date Last Done Comments TETANUS SHOT (ADULT) 1996 ANNUAL DIABETIC 1999 RETINOPATHY SCREENING BMI FOLLOW UP PLAN 1999 HIV SCREENING 1999 A1C TESTING EVERY 6 11/08/2019 05/10/2019, 12/03/2018, 08/26/2018, MONTHS Additional history exists ANNUAL DIABETIC FOOT EXAM 06/30/2020 06/30/2019, 06/30/2019, 05/10/2019, Additional history exists FLU VACCINE > 6 MONTHS Completed 05/10/2019, 05/06/2018 documented as of this encounter Results Not on filedocumented in this encounter Visit Diagnoses Diagnosis Microalbuminuria - Primary Proteinuria documented in this encounter Insurance Type Payer Benefit Subscriber ID Effective Phone Address Plan / Dates Group Medicaid [employer] xxxxxxxxx 2011-P [address] [place] [id number] [place] [address] documented as of this encounter
== END 2019-08-31 00:30 | disposition home or self-care (01) ==
LOC: FSED 23:42
DX: H66.91 Otitis media, unspecified, right ear (principal)
CPT/HCPCS: 99282

== ENCOUNTER 2022-08-02 19:39 | Emergency (ER) | payer OTHER ==
[~2022-08-02] VITALS: Ht 154.9 cm; Wt 88.5 kg
[2022-08-02] MEDS ORDERED: IBUPROFEN 600 MG TAB PO STA (21:20)
[2022-08-02] MEDS ORDERED: IBUPROFEN 600 MG TAB ONE (21:37)
[2022-08-02 22:50] VITALS: BP 137/87
== END 2022-08-02 22:50 | disposition home or self-care (01) ==
LOC: FSED 19:53
DX: S30.1XXA Contusion of abdominal wall, initial encounter (principal); S40.021A Contusion of right upper arm, initial encounter; S93.491A Sprain of other ligament of right ankle, initial encounter; V53.5XXA Driver of pick-up truck or van injured in collision with car, pick-up truck or van in traffic accident, initial encounter; Y92.488 Other paved roadways as the place of occurrence of the external cause; I10 Essential (primary) hypertension; E11.9 Type 2 diabetes mellitus without complications; Z94.4 Liver transplant status
CPT/HCPCS: 81003; 99284